=== PATIENT | male | born 1940 | race Caucasian/White ===

== ENCOUNTER 2017-01-31 10:44 | Observation (INO) | payer MEDICARE ==
[~2017-01-31] VITALS: Ht 177.8 cm; Wt 83.5 kg
[2017-01-31 11:32] LABS: BASOPHILS % (AUTO) 0.3 % (0.0-5.0); EOSINOPHILS % (AUTO) 0.5 % (0.0-8.0); HEMATOCRIT 40.7 % (42-54); MEAN CORPUSCULAR HEMOGLOBIN 33.2 pg (27.0-33.0); MEAN CORPUSCULAR HGB CONC 34.8 g/dL (32.0-36.0); MEAN CORPUSCULAR VOLUME 95.5 fL (79-99); MONOCYTES % (AUTO) 10.5 % (3.0-13.0); NEUTROPHILS % (AUTO) 82.6 % (40.0-77.0); PLATELET COUNT (AUTO) 141 K/uL (130-400); RED BLOOD CELL COUNT(AUTO) 4.26 MIL/uL (4.50-6.20); RED CELL DISTRIBUTION WIDTH 13.1 % (11.0-15.5); WHITE BLOOD COUNT (AUTO) 8.8 K/uL (4.8-10.8)
[2017-01-31 11:33] LABS: LYMPHOCYTES % (AUTO) 6.1 % (21.0-51.0)
[2017-01-31 11:40] LABS: CREATININE 1.4 mg/dL (0.5-1.5); POTASSIUM 3.8 mmol/L (3.5-5.1)
[2017-01-31 11:44] LABS: ALBUMIN 3.4 g/dL (3.5-5.0); BILIRUBIN,TOTAL 1.2 mg/dL (0.2-1.0); TOTAL PROTEIN, SERUM 7.2 g/dL (6.0-8.3)
[2017-01-31 12:08] LABS: B-TYPE NATRIURETIC PEPTIDE 11 pg/mL (0-100)
[2017-01-31] MEDS ORDERED: ENOXAPARIN SODIUM 100 MG/1 ML SQ ONE (14:33)
[2017-01-31] MEDS ORDERED: ACETAMINOPHEN 325 MG TAB ONE (21:58)
[2017-01-31 22:20] VITALS: BP 134/73
[2017-01-31] MEDS ORDERED: MULT (23:06)
[2017-01-31] MEDS ORDERED: FOSAMAX (23:06)
[2017-01-31] MEDS ORDERED: ONDANSETRON HCL 4 MG/2 ML VIAL IVP PRN (23:30)
[2017-01-31] MEDS ORDERED: ACETAMINOPHEN 325 MG TAB PO PRN (23:30)
[2017-02-01] MEDS ORDERED: ONDANSETRON HCL 4 MG/2 ML VIAL IV PRN
[2017-02-01] MEDS ORDERED: ACETAMINOPHEN 325 MG TAB PO PRN
[2017-02-01] MEDS ORDERED: HYDRALAZINE HCL 20 MG/ML VIAL IV PRN
[2017-02-01 03:44] VITALS: BP 110/68
[2017-02-01 06:10] LABS: BASOPHILS % (AUTO) 0.5 % (0.0-5.0); EOSINOPHILS % (AUTO) 1.3 % (0.0-8.0); HEMATOCRIT 37.9 % (42-54); LYMPHOCYTES % (AUTO) 10.9 % (21.0-51.0); MEAN CORPUSCULAR HEMOGLOBIN 33.2 pg (27.0-33.0); MEAN CORPUSCULAR HGB CONC 34.8 g/dL (32.0-36.0); MEAN CORPUSCULAR VOLUME 95.4 fL (79-99); NEUTROPHILS % (AUTO) 75.3 % (40.0-77.0); NUCLEATED RED BLOOD CELLS 0.1 % (0.0-0.19); PLATELET COUNT (AUTO) 143 K/uL (130-400); RED BLOOD CELL COUNT(AUTO) 3.98 MIL/uL (4.50-6.20); WHITE BLOOD COUNT (AUTO) 7.7 K/uL (4.8-10.8)
[2017-02-01 06:13] LABS: INR 0.94 (0.85-1.15); PARTIAL THROMBOPLASTIN TIME 32.8 SEC (26.3-35.5); PROTHROMBIN TIME 9.9 SEC (9.6-11.6)
[2017-02-01 06:16] LABS: CREATININE 1.3 mg/dL (0.5-1.5); POTASSIUM 4.3 mmol/L (3.5-5.1)
[2017-02-01 07:37] VITALS: BP 114/57
[2017-02-01] MEDS: PANTOPRAZOLE SODIUM 40 MG TABLET.DR PO SCH (08:05)
[2017-02-01] MEDS: ASPIRIN 81MG TAB.CHEW PO SCH (08:05)
[2017-02-01] MEDS: ENOXAPARIN SODIUM 80 MG/0.8 ML SQ SCH ×2 (08:08→19:53)
[2017-02-01] MEDS ORDERED: ENOXAPARIN SODIUM 100 MG/1 ML SQ SCH (09:00)
[2017-02-01 11:32] VITALS: BP 121/70
[2017-02-01 15:53] VITALS: BP 105/65
[2017-02-01 20:00] VITALS: BP 121/69
[2017-02-02] VITALS: BP 110/61
[2017-02-02 04:00] VITALS: BP 110/70
[2017-02-02 08:00] VITALS: BP 125/81
[2017-02-02] MEDS: ASPIRIN 81MG TAB.CHEW PO SCH (10:12)
[2017-02-02] MEDS: ENOXAPARIN SODIUM 80 MG/0.8 ML SQ SCH (10:12)
[2017-02-02] MEDS: PANTOPRAZOLE SODIUM 40 MG TABLET.DR PO SCH (10:12)
[2017-02-02 11:00] VITALS: BP 131/80
== END 2017-02-02 17:25 | disposition home or self-care (01) ==
LOC: EDH 10:44 → INTOOBSV 14:17 → EDHIP 14:17 → 3AH 20:43
PROVIDERS: ADMIT Family Medicine; ATTEND Family Medicine
DX: I82.402 Acute embolism and thrombosis of unspecified deep veins of left lower extremity (principal); N40.0 Benign prostatic hyperplasia without lower urinary tract symptoms; Z87.891 Personal history of nicotine dependence; Z96.653 Presence of artificial knee joint, bilateral; Z96.612 Presence of left artificial shoulder joint
CPT/HCPCS: 36415 ×2; 73501; 80048; 80053; 83880; 85025 ×2; 85610; 85730; 93926; 93971; 96372 ×2; 99285; G0378 ×51; J1650 ×4; C9113